=== PATIENT | female | born 1985 | race Caucasian/White ===

== ENCOUNTER 2019-10-22 19:13 | Outpatient (REF) | payer MEDICAID, SELFPAY ==
[2019-10-22 22:06] LABS: Calculated LDL 111 mg/dL (<100); Cholesterol 185 mg/dL (<200); HDL Cholesterol 63 mg/dL (40-60); Triglyceride 59 mg/dL (<150)
[2019-10-22 22:13] LABS: Hemoglobin A1C 5.8 % (3.8-5.6)
== END 2019-10-22 19:33 ==
LOC: NCHCN 19:13
PROVIDERS: PCP Nurse Practitioner Family; Visit Provider Nurse Practitioner Family
DX: Z13.1 Encounter for screening for diabetes mellitus (principal); Z13.220 Encounter for screening for lipoid disorders; Z00.00 Encounter for general adult medical examination without abnormal findings
CPT/HCPCS: 80061; 83036